=== PATIENT | female | born 1975 | race Two or more races ===

== ENCOUNTER → 2016-06-30 | Outpatient (REF) | payer OTHER | LOC: M SFHCLERA 17:06 | PROVIDERS: ATTEND Nurse Practitioner Family | DX: R35.0 Frequency of micturition (principal) ==

== ENCOUNTER → 2017-02-23 | Outpatient (CLI) | payer OTHER ==
--- NOTE | 2017-02-23 13:47 | REPMRS ---
Patient History The patient states she has not had a clinical breast exam in over a year. Family history of colorectal cancer in father at age 62, prostate cancer in father at age 50 or over, colorectal cancer in maternal grandfather, colorectal cancer in mother at age 52, breast cancer in paternal aunt at age 22, and breast cancer in paternal grandmother at age 70. Took hormonal contraceptives for 2 years. Digital Woman Screen Mammo: February 23, 2017 - Exam #: [id number] Bilateral CC and MLO view(s) were taken. Technologist: Maria Dolores Singh, Technologist No prior studies available for comparison. FINDINGS: There are scattered fibroglandular densities. There is no evidence of cancer on this mammogram. ASSESSMENT: BI-RADS/ACR category 2 mammogram. Benign finding(s). Recommendation Routine screening mammogram of both breasts in 1 year (for women over age 40). This mammogram was interpreted with the aid of an FDA-approved computer-aided dectection system. Electronically Signed By: Chris Turner MD 02/23/17 [id number]
== END ==
LOC: M WHC 09:10
PROVIDERS: ATTEND Physician Assistant
DX: Z12.31 Encounter for screening mammogram for malignant neoplasm of breast (principal); Z80.3 Family history of malignant neoplasm of breast; Z80.0 Family history of malignant neoplasm of digestive organs; Z80.42 Family history of malignant neoplasm of prostate

== ENCOUNTER → 2018-02-14 | Outpatient (CLI) | payer OTHER ==
[2018-02-14 11:40] LABS: ESTRADIOL 1347.5 PG/ML
[2018-02-14 12:14] LABS: PROGESTERONE 88.3 NG/ML
== END ==
LOC: M LAB 09:11
DX: E28.9 Ovarian dysfunction, unspecified (principal)
CPT/HCPCS: 84443

== ENCOUNTER → 2018-02-20 | Outpatient (CLI) | payer OTHER ==
[2018-02-20 09:30] LABS: HCG, SERUM QUANTITATIVE < 1.0 MIU/ML
[2018-02-20 09:38] LABS: PROGESTERONE 32.3 NG/ML
== END ==
LOC: M LAB 08:33
DX: E28.9 Ovarian dysfunction, unspecified (principal)
CPT/HCPCS: 84702

== ENCOUNTER → 2018-03-14 | Outpatient (CLI) | payer OTHER | LOC: M WHC 08:30 | DX: Z12.31 Encounter for screening mammogram for malignant neoplasm of breast (principal); Z80.0 Family history of malignant neoplasm of digestive organs; Z80.3 Family history of malignant neoplasm of breast | CPT/HCPCS: 77067 ==

== ENCOUNTER → 2018-04-04 | Outpatient (CLI) | payer OTHER ==
[2018-04-04 09:57] LABS: ESTRADIOL 329.3 PG/ML; LUTEINIZING HORMONE 1.2 mIU/mL
[2018-04-04 09:57] LABS: PROGESTERONE 0.21 NG/ML
== END ==
LOC: M LAB 08:37
DX: E28.9 Ovarian dysfunction, unspecified (principal)
CPT/HCPCS: 83002

== ENCOUNTER → 2018-04-06 | Outpatient (CLI) | payer OTHER ==
[2018-04-06 10:21] LABS: ESTRADIOL 811.1 PG/ML; LUTEINIZING HORMONE 0.8 mIU/mL
[2018-04-06 10:21] LABS: PROGESTERONE 0.56 NG/ML
== END ==
LOC: M LAB 08:25
DX: E28.9 Ovarian dysfunction, unspecified (principal)
CPT/HCPCS: 83002

== ENCOUNTER → 2018-04-09 | Outpatient (REF) | payer OTHER ==
[2018-04-09 14:24] LABS: LUTEINIZING HORMONE 3.1 mIU/mL
[2018-04-09 14:24] LABS: PROGESTERONE 1.04 NG/ML
[2018-04-09 14:57] LABS: ESTRADIOL 2912.5 PG/ML
== END ==
LOC: M LABDRAW1 09:40
DX: E28.9 Ovarian dysfunction, unspecified (principal)
CPT/HCPCS: 83002

== ENCOUNTER → 2018-05-25 | Outpatient (REF) | payer OTHER ==
[2018-05-25 15:16] LABS: HCG, SERUM QUANTITATIVE < 1.0 MIU/ML; THYROID STIMULATING HORMONE 0.516 uIU/ML (0.358-3.740)
[2018-05-25 16:01] LABS: PROGESTERONE 0.34 NG/ML
[2018-05-25 16:02] LABS: ESTRADIOL 23.9 PG/ML; FOLLICLE STIMULATING HORMONE 8.4 mIU/mL; LUTEINIZING HORMONE 3.7 mIU/mL
== END ==
LOC: M LABDRAW1 12:39
PROVIDERS: ATTEND Obstetrics & Gynecology Reproductive Endocrinology
DX: E28.9 Ovarian dysfunction, unspecified (principal)

== ENCOUNTER → 2018-05-28 | Outpatient (REF) | payer OTHER ==
[2018-05-28 12:33] LABS: HCG, SERUM QUANTITATIVE < 1.0 MIU/ML; PROGESTERONE 0.28 NG/ML; THYROID STIMULATING HORMONE 0.497 uIU/ML (0.358-3.740)
[2018-05-28 12:34] LABS: ESTRADIOL 27.9 PG/ML; FOLLICLE STIMULATING HORMONE 7.6 mIU/mL; LUTEINIZING HORMONE 3.7 mIU/mL
== END ==
LOC: M LABDRAW1 11:28
PROVIDERS: ATTEND Obstetrics & Gynecology Reproductive Endocrinology
DX: E28.9 Ovarian dysfunction, unspecified (principal)

== ENCOUNTER → 2018-06-08 | Outpatient (REF) | payer OTHER ==
[2018-06-08 12:58] LABS: ESTRADIOL 121.3 PG/ML; FOLLICLE STIMULATING HORMONE 6.3 mIU/mL; HCG, SERUM QUANTITATIVE < 1.0 MIU/ML; LUTEINIZING HORMONE 6.4 mIU/mL; PROGESTERONE 0.28 NG/ML; THYROID STIMULATING HORMONE 0.678 uIU/ML (0.358-3.740)
== END ==
LOC: M LABDRAW1 10:25
PROVIDERS: ATTEND Obstetrics & Gynecology Reproductive Endocrinology
DX: E28.9 Ovarian dysfunction, unspecified (principal)

== ENCOUNTER → 2018-06-15 | Outpatient (REF) | payer OTHER ==
[2018-06-15 13:29] LABS: ESTRADIOL 538.7 PG/ML; LUTEINIZING HORMONE 4.6 mIU/mL; PROGESTERONE 0.21 NG/ML
== END ==
LOC: M LABDRAW1 09:28
PROVIDERS: ATTEND Obstetrics & Gynecology Reproductive Endocrinology
DX: E28.9 Ovarian dysfunction, unspecified (principal)

== ENCOUNTER → 2018-06-25 | Outpatient (REF) | payer OTHER ==
[2018-06-25 11:20] LABS: THYROID STIMULATING HORMONE 2.2 uIU/ML (0.358-3.740)
[2018-06-25 11:38] LABS: ESTRADIOL 98.9 PG/ML
[2018-06-25 12:15] LABS: PROGESTERONE 80.83 NG/ML
== END ==
LOC: M LABDRAW1 10:45
PROVIDERS: ATTEND Obstetrics & Gynecology Reproductive Endocrinology
DX: E28.9 Ovarian dysfunction, unspecified (principal)

== ENCOUNTER → 2018-07-02 | Outpatient (REF) | payer OTHER ==
[2018-07-02 12:06] LABS: HCG, SERUM QUANTITATIVE < 1.0 MIU/ML
[2018-07-02 12:43] LABS: PROGESTERONE 119.18 NG/ML
== END ==
LOC: M LABDRAW1 11:43
PROVIDERS: ATTEND Obstetrics & Gynecology Reproductive Endocrinology
DX: E28.9 Ovarian dysfunction, unspecified (principal)